=== PATIENT | male | born 1930 | race Caucasian/White ===

== ENCOUNTER 2016-05-01 14:05 | Emergency (ER) | payer MEDICARE ==
[~2016-05-01 14:05] MED LIST: ATORVASTATIN CA40 MG PO; CITALOPRAM HBR10 MG PO; LISINOPRIL10 MG PO; LOPRESSOR 25 MG25 MG GT; LOPRESSOR 25 MG25 MG PO; MEDROL DOSEPAK 24 MG PO; NORVASC5 MG PO; OMEPRAZOLE20 MG PO; OMNICEF 300 MG300 MG PO; PROVENTIL HFA 61 INH INH; TESSALON PERLE100 MG PO
== END 2016-05-01 20:53 | disposition home or self-care (01) ==
LOC: ER1 14:05
DX: S00.03XA Contusion of scalp, initial encounter (principal); I10 Essential (primary) hypertension; I25.10 Atherosclerotic heart disease of native coronary artery without angina pectoris; Z95.5 Presence of coronary angioplasty implant and graft; Z85.038 Personal history of other malignant neoplasm of large intestine; W09.1XXA Fall from playground swing, initial encounter; Y93.89 Activity, other specified; Y92.009 Unspecified place in unspecified non-institutional (private) residence as the place of occurrence of the external cause; Z79.899 Other long term (current) drug therapy
CPT/HCPCS: 70450; 99283

== ENCOUNTER 2016-06-20 09:36 | Emergency (ER) | payer MEDICARE ==
[2016-06-20 11:14] LABS: HEMOGLOBIN 11.2 gm/dl (14.0-17.5); RED BLOOD COUNT 3.83 M/UL (4.20-5.50); WHITE BLOOD COUNT 8.8 K/UL (4.5-11.0)
[2016-06-20 11:31] LABS: BUN/CREATININE RATIO 27 (0-10)
== END 2016-06-20 13:15 | disposition home or self-care (01) ==
LOC: ER1 09:36
PROVIDERS: Physician Assistant
DX: M43.6 Torticollis (principal); R51 Headache; I11.9 Hypertensive heart disease without heart failure; E78.5 Hyperlipidemia, unspecified; Z79.82 Long term (current) use of aspirin; Z79.899 Other long term (current) drug therapy
CPT/HCPCS: 36415; 70450; 72125; 80048; 85025; 99284